=== PATIENT | male | born 1990 | race African-American/Black ===

== ENCOUNTER 2019-10-19 06:19 | Emergency (ER) | payer OTHER ==
[~2019-10-19] VITALS: Ht 170.2 cm; Wt 72.6 kg
[2019-10-19 06:28] VITALS: BP 130/71
[2019-10-19] MEDS ORDERED: ERYTHROMYCIN E3.5 G2 OPHTHALMIC (06:55)
== END 2019-10-19 07:02 | disposition home or self-care (01) ==
LOC: ER 06:19
DX: S05.01XA Injury of conjunctiva and corneal abrasion without foreign body, right eye, initial encounter (principal); V89.2XXA Person injured in unspecified motor-vehicle accident, traffic, initial encounter; W22.19XA Striking against or struck by other automobile airbag, initial encounter; Y93.89 Activity, other specified; Y92.89 Other specified places as the place of occurrence of the external cause; Y99.8 Other external cause status